=== PATIENT | female | born 1965 | race African-American/Black ===

== ENCOUNTER 2020-05-13 00:32 | Inpatient (IN) | payer MEDICAID ==
[~2020-05-13] VITALS: Ht 162.6 cm; Wt 56.3 kg
[2020-05-13] VITALS (89 sets, daily range): BP systolic 94–159; BP diastolic 53–105
[2020-05-13] MEDS ORDERED: ONDANSETRON HCL 4MG/2ML INJ IV STA (00:46)
[2020-05-13] MEDS ORDERED: SODIUM CHLORIDE 0.9% 1,000 ML IV ONE ×4 (00:46→02:23)
[2020-05-13] MEDS ORDERED: MORPHINE SULFATE 4 MG/ML CPJ (NOT FOR IM USE) IV STA (00:46)
[2020-05-13] MEDS ORDERED: ETOMIDATE 2MG/ML 10ML VIAL IV ONE (01:00)
[2020-05-13] MEDS ORDERED: PROPOFOL 10MG/ML 100ML 100 ML IV ONE ×2 (01:00→08:39)
[2020-05-13] MEDS ORDERED: VECURONIUM BROMIDE 10 MG/VIAL IV ONE (01:00)
[2020-05-13] MEDS ORDERED: IOHEXOL-300 100 ML BOTTLE ONE (01:10)
[2020-05-13] MEDS ORDERED: LEVOFLOXACIN 750MG PREMIX 150 ML IV ONE (01:45)
[2020-05-13] MEDS ORDERED: VANCOMYCIN 1 G PREMIX 200 ML IV ONE (01:45)
[2020-05-13] MEDS ORDERED: ENALAPRIL 2.5MG/2ML VIAL 2ML IV ONE (01:45)
[2020-05-13] MEDS ORDERED: ENALAPRIL 1.25MG/ML VIAL 1ML IV NR (01:45)
[2020-05-13] MEDS ORDERED: METRONIDAZOLE 500 MG PREMIX 100 ML IV ONE (01:45)
[2020-05-13 02:04] LABS: BG BASE EXCESS -17.3 mmol/L (-2.0-2.0); BG CARBOXYHEMOGLOBIN 1.8 % (0.5-1.5); BG DEOXYHEMOGLOBIN 15.1 % (0.0-5.0); BG FRACTION INSPIRED OXYGEN 50; BG HCO3 ACT 14.6 mmol/L (22.0-26.0); BG METHEMOGLOBIN 0.2 % (0.0-1.5); BG OXYGEN SATURATION 84.6 % (92.0-98.5); BG OXYHEMOGLOBIN 82.9 % (94.0-97.0); BG PCO2 66.9 mmHg (35.0-45.0); BG PH 6.957 (7.350-7.450); BG PO2 82.2 mmHg (75.0-100.0); BG TOTAL HEMOGLOBIN 10.4 g/dL (12.0-18.0); BG VENT MODE VENT - AC
[2020-05-13 02:11] LABS: CHLORIDE 101 mEq/L (98-107)
[2020-05-13 02:12] LABS: CLARITY URINE CLEAR (CLEAR); COLOR URINE YELLOW (YELLOW); KETONES URINE NEGATIVE (NEGATIVE); LEUKOCYTE ESTERASE URINE TRACE (NEGATIVE); NITRITE URINE POSITIVE (NEGATIVE); OCCULT BLOOD URINE 3+ (NEGATIVE); PH URINE 6.5 (4.5-8.0); PROTEIN URINE 1+ (NEGATIVE); SPECIFIC GRAVITY URINE 1.013 (1.005-1.030)
[2020-05-13 02:15] LABS: ETHANOL BLOOD 229 mg/dL
[2020-05-13 02:18] LABS: HCG SCREEN NEGATIVE; PARTIAL THROMBOPLASTIN TIME 27.8 sec (23.4-31.0); PROTHROMBIN TIME 10.5 sec (9.6-11.0)
[2020-05-13 02:25] LABS: BASOPHILS % 0.7 % (0.0-2.0); EOSINOPHILS % 1.7 % (0.0-5.0); HEMATOCRIT. 30.1 % (36.0-48.0); HEMOGLOBIN. 9.4 g/dL (12.0-16.0); LYMPHOCYTES % 26.4 % (20.0-50.0); MEAN CORPUSCULAR HEMOGLOBIN 35.1 pg (28.0-32.0); MEAN CORPUSCULAR VOLUME 111.7 fL (81.0-99.0); MEAN PLATELET VOLUME 8.8 fl (7.4-10.4); MONOCYTES % 6.1 % (2.0-8.0); NEUTROPHILS % 65.1 % (40.0-76.0); PLATELET 142 x1000/uL (130-400); RED BLOOD CELL COUNT 2.69 mill/uL (4.2-5.4); RED CELL DISTRIBUTION WIDTH 18.2 % (11.6-14.6)
[2020-05-13] MEDS ORDERED: SODIUM BICARBONATE 150 MEQ in DEXTROSE 5% WATER 1,000 ML IV STA (02:25)
[2020-05-13 02:30] LABS: PLATELET ESTIMATE NORMAL
[2020-05-13 02:30] LABS: OPIATES URINE SCREEN PRESUMTIVE POSITIVE (NEGATIVE); PHENCYCLIDINE URINE SCREEN NEGATIVE (NEGATIVE)
[2020-05-13] MEDS ORDERED: SODIUM BICARBONATE 8.4% 1 MEQ/ML 50ML SYR IV ONE ×2 (02:30)
[2020-05-13 02:31] LABS: *AMPHETAMINES SCREEN URINE NEGATIVE (NEGATIVE); *BARBITURATES SCREEN URINE NEGATIVE (NEGATIVE); *BENZODIAZEPINES SCREEN URINE NEGATIVE (NEGATIVE); *COCAINE SCREEN URINE NEGATIVE (NEGATIVE); CANNABINOID URINE SCREEN NEGATIVE (NEGATIVE); METHADONE URINE SCREEN NEGATIVE (NEGATIVE)
[2020-05-13] MEDS ORDERED: POTASSIUM CHLORIDE INJ 40 MEQ in DEXT 5% WATER 500 ML IV NR (03:00)
[2020-05-13 03:35] LABS: BG BASE EXCESS -11.2 mmol/L (-2.0-2.0); BG CARBOXYHEMOGLOBIN 0.2 % (0.5-1.5); BG DEOXYHEMOGLOBIN 0.7 % (0.0-5.0); BG FRACTION INSPIRED OXYGEN 100; BG HCO3 ACT 16.2 mmol/L (22.0-26.0); BG METHEMOGLOBIN 0.3 % (0.0-1.5); BG OXYGEN SATURATION 99.3 % (92.0-98.5); BG OXYHEMOGLOBIN 98.8 % (94.0-97.0); BG PCO2 42.5 mmHg (35.0-45.0); BG PH 7.199 (7.350-7.450); BG PO2 296.5 mmHg (75.0-100.0); BG SAMPLE SITE LEFT RADIAL; BG TOTAL HEMOGLOBIN 9.7 g/dL (12.0-18.0); BG VENT MODE VENT - AC
[2020-05-13] MEDS ORDERED: ONDANSETRON HCL 4MG/2ML INJ IV PRN (09:30)
[2020-05-13] MEDS: PANTOPRAZOLE SODIUM 40 MG/VIAL IV SCH (10:37)
[2020-05-13] MEDS ORDERED: POTASSIUM CHLORIDE INJ 40 MEQ in DEXT 5% WATER 250 ML IV SCH ×5 (11:00→14:00)
[2020-05-13] MEDS ORDERED: FOLIC ACID 1 MG, THIAMINE HCL 100 MG, MVI, ADULT NO.1 10 ML in DEXTROSE 5% WATER 1,000 ML IV SCH ×4 (11:00)
[2020-05-13 11:10] LABS: HEMATOCRIT. 25.1 % (36.0-48.0); HEMOGLOBIN. 8.5 g/dL (12.0-16.0); MEAN CORPUSCULAR HEMOGLOBIN 35.8 pg (28.0-32.0); MEAN CORPUSCULAR VOLUME 105.9 fL (81.0-99.0); MEAN PLATELET VOLUME 8.3 fl (7.4-10.4); PLATELET 106 x1000/uL (130-400); RED BLOOD CELL COUNT 2.37 mill/uL (4.2-5.4); RED CELL DISTRIBUTION WIDTH 17.8 % (11.6-14.6)
[2020-05-13 11:19] LABS: CHLORIDE 102 mEq/L (98-107)
[2020-05-13 11:29] LABS: BG BASE EXCESS 8.6 mmol/L (-2.0-2.0); BG CARBOXYHEMOGLOBIN 0.5 % (0.5-1.5); BG DEOXYHEMOGLOBIN 0.9 % (0.0-5.0); BG HCO3 ACT 31.5 mmol/L (22.0-26.0); BG METHEMOGLOBIN 0.1 % (0.0-1.5); BG OXYGEN SATURATION 99.1 % (92.0-98.5); BG OXYHEMOGLOBIN 98.5 % (94.0-97.0); BG PCO2 36.6 mmHg (35.0-45.0); BG PH 7.553 (7.350-7.450); BG PO2 165.7 mmHg (75.0-100.0); BG SAMPLE SITE RIGHT RADIAL; BG VENT MODE VENT - AC
[2020-05-13 11:31] LABS: CREATINE KINASE 495 IU/L (26-192)
[2020-05-13 11:37] LABS: PLATELET ESTIMATE SLIGHTLY DECREASED
[2020-05-13] MEDS: FENTANYL CITRATE/PF 1,000 MCG in SODIUM CHLORIDE 0.9% 80 ML IV PRN ×2 (11:46→17:40)
[2020-05-13] MEDS: MIDAZOLAM HCL 100 MG in DEXT 5% WATER 80 ML IV PRN ×2 (11:47→17:39)
[2020-05-13] MEDS: LEVOFLOXACIN 500MG PREMIX 100 ML IV SCH (12:11)
[2020-05-13] MEDS: METRONIDAZOLE 500 MG PREMIX 100 ML IV SCH ×2 (12:11→17:38)
[2020-05-13 12:57] LABS: PHOSPHORUS 0.8 mg/dL (2.5-4.9)
[2020-05-13 13:20] LABS: HEPATITIS B SURFACE ANTIGEN NEGATIVE
[2020-05-13 13:49] LABS: HEPATITIS A AB IGM NEGATIVE (NEGATIVE)
[2020-05-13] MEDS ORDERED: MAGNESIUM 4 G PREMIX 100 ML IV SCH (14:00)
[2020-05-13] MEDS ORDERED: POTASSIUM PHOS,M-BASIC-D-BASIC 30 MMOL in DEXT 5% WATER 500 ML IV SCH (14:00)
[2020-05-13 21:43] LABS: CHLORIDE 101 mEq/L (98-107)
[2020-05-13 21:48] LABS: PHOSPHORUS 3.8 mg/dL (2.5-4.9)
[2020-05-14] VITALS (91 sets, daily range): BP systolic 83–141; BP diastolic 54–104
[2020-05-14] MEDS: METRONIDAZOLE 500 MG PREMIX 100 ML IV SCH ×3 (03:25→18:44)
[2020-05-14] MEDS: MIDAZOLAM HCL 100 MG in DEXT 5% WATER 80 ML IV PRN ×3 (03:33→19:50)
[2020-05-14] MEDS: FENTANYL CITRATE/PF 1,000 MCG in SODIUM CHLORIDE 0.9% 80 ML IV PRN ×3 (03:33→19:52)
[2020-05-14 04:53] LABS: BASOPHILS % 0.2 % (0.0-2.0); EOSINOPHILS % 0.6 % (0.0-5.0); HEMATOCRIT. 25.1 % (36.0-48.0); HEMOGLOBIN. 8.2 g/dL (12.0-16.0); MEAN CORPUSCULAR VOLUME 107.6 fL (81.0-99.0); MONOCYTES % 8.1 % (2.0-8.0); NEUTROPHILS % 78.1 % (40.0-76.0); PLATELET 94 x1000/uL (130-400); RED BLOOD CELL COUNT 2.34 mill/uL (4.2-5.4); RED CELL DISTRIBUTION WIDTH 18.1 % (11.6-14.6)
[2020-05-14 04:55] LABS: CHLORIDE 102 mEq/L (98-107)
[2020-05-14] MEDS: PANTOPRAZOLE SODIUM 40 MG/VIAL IV SCH (09:39)
[2020-05-14 10:07] LABS: BG BASE EXCESS 8.5 mmol/L (-2.0-2.0); BG DEOXYHEMOGLOBIN 1.1 % (0.0-5.0); BG FRACTION INSPIRED OXYGEN 40; BG HCO3 ACT 32.5 mmol/L (22.0-26.0); BG METHEMOGLOBIN 0.2 % (0.0-1.5); BG OXYGEN SATURATION 98.9 % (92.0-98.5); BG OXYHEMOGLOBIN 97.7 % (94.0-97.0); BG PCO2 42.5 mmHg (35.0-45.0); BG PH 7.501 (7.350-7.450); BG PO2 141.3 mmHg (75.0-100.0); BG SAMPLE SITE LEFT BRACHIAL; BG TOTAL HEMOGLOBIN 8.5 g/dL (12.0-18.0); BG VENT MODE VENT - AC
[2020-05-14] MEDS ORDERED: BISACODYL 10MG SUPP PR SCH (10:30)
[2020-05-14] MEDS: LEVOFLOXACIN 500MG PREMIX 100 ML IV SCH (10:45)
[2020-05-14] MEDS: DEXT 5%/0.45% NACL 1000ML 1,000 ML IV SCH ×2 (10:49→19:48)
[2020-05-14] MEDS ORDERED: ENOXAPARIN 40MG/0.4ML SYR SUBCUT SCH (17:00)
[2020-05-14 19:12] LABS: FOLIC ACID (FOLATE) SERUM 8.8 ng/mL (>5.38)
[2020-05-14] MEDS: FOLIC ACID 1 MG, THIAMINE HCL 100 MG, MVI, ADULT NO.1 10 ML in DEXTROSE 5% WATER 1,000 ML IV SCH ×4 (23:13)
[2020-05-15] VITALS (74 sets, daily range): BP systolic 88–169; BP diastolic 45–101
[2020-05-15] MEDS: METRONIDAZOLE 500 MG PREMIX 100 ML IV SCH ×3 (02:19→17:53)
[2020-05-15 05:44] LABS: BASOPHILS % 0.4 % (0.0-2.0); EOSINOPHILS % 1.6 % (0.0-5.0); HEMOGLOBIN. 7.3 g/dL (12.0-16.0); LYMPHOCYTES % 17.3 % (20.0-50.0); MEAN CORPUSCULAR HEMOGLOBIN 35.4 pg (28.0-32.0); MEAN CORPUSCULAR VOLUME 107.1 fL (81.0-99.0); MEAN PLATELET VOLUME 8.6 fl (7.4-10.4); MONOCYTES % 8.6 % (2.0-8.0); NEUTROPHILS % 72.1 % (40.0-76.0); PLATELET 65 x1000/uL (130-400); RED BLOOD CELL COUNT 2.05 mill/uL (4.2-5.4); RED CELL DISTRIBUTION WIDTH 17.8 % (11.6-14.6)
[2020-05-15 05:54] LABS: CHLORIDE 106 mEq/L (98-107)
[2020-05-15] MEDS: MIDAZOLAM HCL 100 MG in DEXT 5% WATER 80 ML IV PRN (06:34)
[2020-05-15] MEDS: FENTANYL CITRATE/PF 1,000 MCG in SODIUM CHLORIDE 0.9% 80 ML IV PRN (06:35)
[2020-05-15 08:40] LABS: BG CARBOXYHEMOGLOBIN 0.8 % (0.5-1.5); BG DEOXYHEMOGLOBIN 4.6 % (0.0-5.0); BG HCO3 ACT 24.4 mmol/L (22.0-26.0); BG METHEMOGLOBIN 0.3 % (0.0-1.5); BG OXYGEN SATURATION 95.3 % (92.0-98.5); BG OXYHEMOGLOBIN 94.3 % (94.0-97.0); BG PH 7.486 (7.350-7.450); BG PO2 76.9 mmHg (75.0-100.0); BG SAMPLE SITE RIGHT RADIAL; BG TOTAL HEMOGLOBIN 7.6 g/dL (12.0-18.0); BG VENT MODE VENT - AC
[2020-05-15] MEDS: PANTOPRAZOLE SODIUM 40 MG/VIAL IV SCH (09:03)
[2020-05-15] MEDS: POTASSIUM CHLORIDE 20MEQ TABLET SR PO NR ×3 (10:00→11:51)
[2020-05-15] MEDS: DEXT 5%/0.45% NACL 1000ML 1,000 ML IV SCH ×2 (10:46→17:53)
[2020-05-15] MEDS: LEVOFLOXACIN 500MG PREMIX 100 ML IV SCH (11:13)
[2020-05-15] MEDS ORDERED: POTASSIUM CHLORIDE 20MEQ/PACKET PO NR (11:15)
[2020-05-15 13:49] LABS: BG BASE EXCESS 2.2 mmol/L (-2.0-2.0); BG CARBOXYHEMOGLOBIN 1.5 % (0.5-1.5); BG DEOXYHEMOGLOBIN 8.2 % (0.0-5.0); BG FRACTION INSPIRED OXYGEN 30; BG HCO3 ACT 27.1 mmol/L (22.0-26.0); BG METHEMOGLOBIN 0.3 % (0.0-1.5); BG OXYGEN SATURATION 91.6 % (92.0-98.5); BG PCO2 44.1 mmHg (35.0-45.0); BG PH 7.407 (7.350-7.450); BG PO2 67.4 mmHg (75.0-100.0); BG SAMPLE SITE LEFT RADIAL; BG TOTAL HEMOGLOBIN 7.7 g/dL (12.0-18.0); BG VENT MODE VENT - CPAP
[2020-05-15] MEDS: ACETAMINOPHEN 650MG/20.3ML UDC PO PRN (14:42)
[2020-05-15] MEDS: FOLIC ACID 1 MG, THIAMINE HCL 100 MG, MVI, ADULT NO.1 10 ML in DEXTROSE 5% WATER 1,000 ML IV SCH ×4 (15:46)
[2020-05-15] MEDS: LORAZEPAM 2MG/ML CPJ IV PRN (20:20)
[2020-05-16] VITALS (16 sets, daily range): BP systolic 121–179; BP diastolic 60–104
[2020-05-16] MEDS: METRONIDAZOLE 500 MG PREMIX 100 ML IV SCH ×3 (01:48→18:17)
[2020-05-16] MEDS: DEXT 5%/0.45% NACL 1000ML 1,000 ML IV SCH ×2 (01:49→12:51)
[2020-05-16] MEDS: LORAZEPAM 2MG/ML CPJ IV PRN ×3 (02:54→20:35)
[2020-05-16 05:17] LABS: BASOPHILS % 0.3 % (0.0-2.0); CHLORIDE 110 mEq/L (98-107); EOSINOPHILS % 1.8 % (0.0-5.0); HEMATOCRIT. 23.7 % (36.0-48.0); HEMOGLOBIN. 7.8 g/dL (12.0-16.0); LYMPHOCYTES % 14.7 % (20.0-50.0); MEAN CORPUSCULAR HEMOGLOBIN 35.3 pg (28.0-32.0); MEAN CORPUSCULAR VOLUME 107.9 fL (81.0-99.0); MEAN PLATELET VOLUME 9.4 fl (7.4-10.4); MONOCYTES % 10.8 % (2.0-8.0); NEUTROPHILS % 72.4 % (40.0-76.0); PLATELET 82 x1000/uL (130-400); RED BLOOD CELL COUNT 2.19 mill/uL (4.2-5.4); RED CELL DISTRIBUTION WIDTH 17.3 % (11.6-14.6)
[2020-05-16] MEDS: CLONIDINE 0.1MG TABLET PO PRN ×2 (06:57→13:46)
[2020-05-16 08:30] LABS: BG BASE EXCESS 1.9 mmol/L (-2.0-2.0); BG DEOXYHEMOGLOBIN 5.2 % (0.0-5.0); BG FRACTION INSPIRED OXYGEN 30; BG HCO3 ACT 25.3 mmol/L (22.0-26.0); BG METHEMOGLOBIN 0.2 % (0.0-1.5); BG OXYGEN SATURATION 94.7 % (92.0-98.5); BG OXYHEMOGLOBIN 93.6 % (94.0-97.0); BG PCO2 34.7 mmHg (35.0-45.0); BG PH 7.481 (7.350-7.450); BG PO2 75.1 mmHg (75.0-100.0); BG SAMPLE SITE LEFT RADIAL; BG TOTAL HEMOGLOBIN 8.3 g/dL (12.0-18.0); BG VENT MODE NASAL CANNULA
[2020-05-16] MEDS: PANTOPRAZOLE SODIUM 40 MG/VIAL IV SCH (08:31)
[2020-05-16] MEDS ORDERED: POTASSIUM CHLORIDE 20MEQ/PACKET PO NR (10:30)
[2020-05-16] MEDS: LEVOFLOXACIN 500MG PREMIX 100 ML IV SCH (11:52)
[2020-05-16] MEDS: CHLORDIAZEPOXIDE 25MG CAPSULE PO SCH ×2 (13:15→20:34)
[2020-05-16] MEDS ORDERED: LORAZEPAM 2MG/ML CPJ IV NR (13:20)
[2020-05-16] MEDS: POTASSIUM CHLORIDE INJ 40 MEQ in DEXT 5% WATER 250 ML IV SCH ×2 (14:00→15:24)
[2020-05-16] MEDS: NICOTINE 14MG PATCH TD SCH (14:07)
[2020-05-16] MEDS: HALOPERIDOL LACTATE 5MG/ML VIAL IM PRN (14:51)
[2020-05-16] MEDS ORDERED: POTASSIUM CHLORIDE 20MEQ/PACKET PO ONE (16:00)
[2020-05-16] MEDS ORDERED: POTASSIUM CHLORIDE 20MEQ/PACKET NG NR (16:15)
[2020-05-17] VITALS (12 sets, daily range): BP systolic 110–152; BP diastolic 68–97
[2020-05-17] MEDS: FOLIC ACID 1 MG, THIAMINE HCL 100 MG, MVI, ADULT NO.1 10 ML in DEXTROSE 5% WATER 1,000 ML IV SCH ×8 (02:17→21:05)
[2020-05-17] MEDS: METRONIDAZOLE 500 MG PREMIX 100 ML IV SCH ×3 (02:17→16:56)
[2020-05-17] MEDS: ACETAMINOPHEN 650MG/20.3ML UDC PO PRN (05:15)
[2020-05-17] MEDS: CHLORDIAZEPOXIDE 25MG CAPSULE PO SCH ×3 (05:15→21:06)
[2020-05-17 07:10] LABS: HEMATOCRIT. 25.1 % (36.0-48.0); HEMOGLOBIN. 8.3 g/dL (12.0-16.0); MEAN CORPUSCULAR HEMOGLOBIN 35.7 pg (28.0-32.0); MEAN CORPUSCULAR VOLUME 107.6 fL (81.0-99.0); MEAN PLATELET VOLUME 9.3 fl (7.4-10.4); PLATELET 94 x1000/uL (130-400); RED BLOOD CELL COUNT 2.34 mill/uL (4.2-5.4); RED CELL DISTRIBUTION WIDTH 17.4 % (11.6-14.6)
[2020-05-17 07:22] LABS: CHLORIDE 106 mEq/L (98-107)
[2020-05-17] MEDS: DEXT 5%/0.45% NACL 1000ML 1,000 ML IV SCH ×2 (08:05→18:35)
[2020-05-17] MEDS: PANTOPRAZOLE SODIUM 40 MG/VIAL IV SCH (09:00)
[2020-05-17] MEDS: NICOTINE 14MG PATCH TD SCH (09:55)
[2020-05-17] MEDS ORDERED: POTASSIUM CHLORIDE 20MEQ/PACKET PO SCH ×3 (11:30→17:30)
[2020-05-17] MEDS ORDERED: SODIUM BICARBONATE 4% (2.4MEQ) 5ML VIAL IV ONE (12:50)
[2020-05-17] MEDS ORDERED: LIDOCAINE HCL 1% 20ML VIAL (Pyxis) INJ ONE (12:51)
[2020-05-17 14:32] LABS: NUCLEATED RED BLOOD CELLS 1 /100 WBC; PLATELET ESTIMATE MARKEDLY DECREASED
[2020-05-17] MEDS ORDERED: LEVOFLOXACIN 500MG PREMIX 100 ML IV SCH (18:00)
[2020-05-17] MEDS ORDERED: MAGNESIUM 4 G PREMIX 100 ML IV NR (21:00)
[2020-05-18] VITALS (9 sets, daily range): BP systolic 98–167; BP diastolic 71–98
[2020-05-18] MEDS: METRONIDAZOLE 500 MG PREMIX 100 ML IV SCH ×2 (02:19→09:09)
[2020-05-18] MEDS: CHLORDIAZEPOXIDE 25MG CAPSULE PO SCH ×2 (05:32→13:27)
[2020-05-18] MEDS: DEXT 5%/0.45% NACL 1000ML 1,000 ML IV SCH ×2 (05:36→09:09)
[2020-05-18 06:41] LABS: CHLORIDE 110 mEq/L (98-107); HEMATOCRIT. 23.2 % (36.0-48.0); HEMOGLOBIN. 7.6 g/dL (12.0-16.0); MEAN CORPUSCULAR HEMOGLOBIN 35.2 pg (28.0-32.0); MEAN CORPUSCULAR VOLUME 108.1 fL (81.0-99.0); MEAN PLATELET VOLUME 9.9 fl (7.4-10.4); PLATELET 100 x1000/uL (130-400); RED BLOOD CELL COUNT 2.14 mill/uL (4.2-5.4); RED CELL DISTRIBUTION WIDTH 17.2 % (11.6-14.6)
[2020-05-18] MEDS: HALOPERIDOL LACTATE 5MG/ML VIAL IM PRN ×2 (07:43→16:10)
[2020-05-18] MEDS: LORAZEPAM 2MG/ML CPJ IV PRN ×3 (07:47→16:26)
[2020-05-18] MEDS: PANTOPRAZOLE SODIUM 40 MG/VIAL IV SCH (07:56)
[2020-05-18] MEDS: NICOTINE 14MG PATCH TD SCH (07:57)
[2020-05-18] MEDS ORDERED: VECURONIUM BROMIDE 10 MG/VIAL IV ONE (09:00)
[2020-05-18] MEDS ORDERED: ETOMIDATE 2MG/ML 10ML VIAL IV ONE (09:00)
[2020-05-18] MEDS ORDERED: METRONIDAZOLE 500MG TABLET PO SCH (14:00)
[2020-05-18] MEDS ORDERED: LEVOFLOXACIN 500MG TABLET PO SCH (15:00)
[2020-05-18 20:18] LABS: PLATELET ESTIMATE DECREASED
== END 2020-05-18 17:00 | disposition left against medical advice (07) | DRG 720 ==
LOC: ER 00:32 → EDBD 00:32 → MICUSO 02:49 → EDBEDREQTM 02:50 → EDBEDREQ 02:50 → EDBEDREQSVC 02:50 → ENRESERV 02:52 → CANRESERV 02:52 → ENRESERV 07:26 → MICUSO 09:00 → MICUNO 05-15 00:30 → 5EST 05-16 10:30
PROVIDERS: ADMIT Internal Medicine; ATTEND Internal Medicine
PROC: 5A1945Z Respiratory Ventilation, 24-96 Consecutive Hours (ICD-10-PCS; principal; 2020-05-13)
PROC: 0BH17EZ Insertion of Endotracheal Airway into Trachea, Via Natural or Artificial Opening (ICD-10-PCS; 2020-05-13)
PROC: 02H633Z Insertion of Infusion Device into Right Atrium, Percutaneous Approach (ICD-10-PCS; 2020-05-16)
PROC: B548ZZA Ultrasonography of Superior Vena Cava, Guidance (ICD-10-PCS; 2020-05-16)
DX: A41.9 Sepsis, unspecified organism (principal); D53.9 Nutritional anemia, unspecified; D69.59 Other secondary thrombocytopenia; E43 Unspecified severe protein-calorie malnutrition; E72.20 Disorder of urea cycle metabolism, unspecified; E83.39 Other disorders of phosphorus metabolism; E83.42 Hypomagnesemia; E87.4 Mixed disorder of acid-base balance; E87.6 Hypokalemia; F10.129 Alcohol abuse with intoxication, unspecified; I21.A1 Myocardial infarction type 2; M62.82 Rhabdomyolysis; Y90.7 Blood alcohol level of 200-239 mg/100 ml; I10 Essential (primary) hypertension; I46.9 Cardiac arrest, cause unspecified; G92 Toxic encephalopathy; N73.9 Female pelvic inflammatory disease, unspecified; J43.9 Emphysema, unspecified; K56.7 Ileus, unspecified; J69.0 Pneumonitis due to inhalation of food and vomit; F11.10 Opioid abuse, uncomplicated; W18.39XA Other fall on same level, initial encounter; J96.01 Acute respiratory failure with hypoxia; K76.0 Fatty (change of) liver, not elsewhere classified; M47.9 Spondylosis, unspecified; N13.6 Pyonephrosis; Z20.828 Contact with and (suspected) exposure to other viral communicable diseases; Z78.1 Physical restraint status; Z90.710 Acquired absence of both cervix and uterus; Z88.0 Allergy status to penicillin; Z88.8 Allergy status to other drugs, medicaments and biological substances; Y93.89 Activity, other specified; Y92.098 Other place in other non-institutional residence as the place of occurrence of the external cause; Y99.8 Other external cause status; Z68.21 Body mass index [BMI] 21.0-21.9, adult
CPT/HCPCS: 36415; 36600; 71045; 71260; 74018; 74177; 76700; 76937; 80048; 80053; 80076; 80305; 80307; 80320; 80329; 81003; 82140; 82248; 82270; 82375; 82550; 82607; 82728; 82746; 82805; 83036; 83540; 83550; 83605; 83615; 83735; 84100; 84484; 84703; 85025; 85379; 86705; 86709; 86803; 86850; 86900; 87070; 87340; 87426; 87635; 92610; 93005; 93970; 94002; 94003; 97162; 97166; 99291; C1725; C9113; J1630; J1650; J1956; J2060; J2250; J2270; J2405; J2704; J3010; J3370; J3411; J3475; J3480; J3490; J7030; J7050; J7060; J7070; Q9967; G0480